=== PATIENT | female | born 1990 | race Caucasian/White ===

== ENCOUNTER 2016-12-09 07:48 | Inpatient (IN) | payer BC ==
[~2016-12-09] VITALS: Ht 157.5 cm; Wt 102.0 kg
--- NOTE | ~2016-12-09 | OR ---
PATIENT'S NAME: YAJAIRA CHÁVEZ [facility] AGE: 26 Y [address] ROOM: [id number] [place], [place] [id number] LOCATION: BS ADMIT DATE: 12/09/2016 OR/Procedure Report DISCHARGE DATE: FAMILY PHYSICIAN: Jose Miguel Mcgee MD ATTENDING PHYSICIAN: Jose Miguel Mcgee SURGEON: Jose Miguel Mcgee MD [employer]SULTANT: DATE OF PROCEDURE: 12/09/2016 PREOPERATIVE DIAGNOSES: 1. Term intrauterine at 38 weeks and 4 days gestation. 2. Spontaneous rupture of membranes with clear fluid. 3. Epidural anesthesia. 4. Pitocin augmentation. POSTOPERATIVE DIAGNOSES: 1. Term intrauterine at 38 weeks and 4 days gestation. 2. Spontaneous rupture of membranes with clear fluid. 3. Epidural anesthesia. 4. Pitocin augmentation. 5. Delivery of a viable male weighing 7 pounds, 15 ounces, scores 8 and 9 at one and five minutes respectively. 6. Very minor second-degree laceration with simple repair. DESCRIPTION OF PROCEDURE: This 26-year-old presented to Labor and Delivery earlier this morning after rupture at home around 6 a.m. She had had an uncomplicated to this point and was 38 weeks and 4 days gestation who was O positive, antibody screen negative, GBS negative, rubella immune. She had received her Tdap. She really had not been johanna for the several hours after her rupture; so, we did go ahead and start her on some Pitocin augmentation. She did have some progression and progressed to complete without difficulty. She pushed pretty much for right at an hour before delivering a male over a minor laceration described below. Baby delivered from an OA presentation with a fair amount of caput. There was no shoulder dystocia. The remainder of the delivered without difficulty. There was no nuchal cord present. Baby rotated to the maternal right after the head was delivered and the remainder of the was delivered without difficulty. Baby was placed on maternal abdomen. The cord was doubly clamped and cut by myself. Placenta then delivered intact with 3 vessel cord. EBL was 200 mL. The placenta was carefully inspected and no missing cotyledons were noted. The cervix is inspected and found to be intact without focal laceration. There were no vaginal sidewall hematomas. The perineum had a very, very minor second-degree laceration, but it did happen to go into a vessel that was pumping; so, we did go ahead and repair that with 3-0 Vicryl in the usual manner. She tolerated all that well under the epidural PATIENT'S NAME: YAJAIRA CHÁVEZ [facility] AGE: 26 Y [address] ROOM: [place] [id number] LOCATION: GO ADMIT DATE: 12/09/2016 OR/Procedure Report DISCHARGE DATE: FAMILY PHYSICIAN: Jose Miguel Mcgee MD ATTENDING PHYSICIAN: Jose Miguel Mcgee anesthesia. Both sponge counts and needle counts were correct. Both mom and are doing well at this time. JOSE MIGUEL MCGEE MD TAB/modl /[id number] d: 12/10/16 0057 t: 12/13/16 0835, OPERATIVE SUMMARY
[2016-12-09] MEDS ORDERED: PRENATAL 1+1)(P1 TAB PO (09:08)
[2016-12-09 09:42] LABS: BASOPHIL % 0.1 %; EOSINOPHIL % 0.2 %; IMMATURE GRANULOCYTE # 0.1 K/uL (0.0-0.3); IMMATURE GRANULOCYTE % 0.6 %; LYMPHOCYTE # 1.3 K/uL (0.8-4.0); LYMPHOCYTE % 15.2 %; MCH 27.5 pg (27.0-34.0); MCHC 34.2 gm/dL (32.0-36.5); MCV 80.5 fl (83.0-98.0); MONOCYTE # 0.4 K/uL (0.0-1.0); MPV 13.4 fl (9.4-12.4); NEUTROPHIL % 78.9 %; NRBC % 0 /100WBC (0-0.00); PLATELET COUNT 157 K/uL (150-450); RBC 4.72 M/uL (3.50-5.00); RDW-CV 14.7 % (11.9-14.6); WBC 8.8 K/uL (4.0-11.0)
[2016-12-10 05:31] LABS: BASOPHIL % 0.2 %; EOSINOPHIL % 0.1 %; HEMATOCRIT 31.4 % (33.0-46.0); HEMOGLOBIN 10.7 g/dL (11.0-15.0); IMMATURE GRANULOCYTE # 0.1 K/uL (0.0-0.3); IMMATURE GRANULOCYTE % 0.7 %; LYMPHOCYTE % 15.4 %; MCH 27.5 pg (27.0-34.0); MCHC 34.1 gm/dL (32.0-36.5); MCV 80.7 fl (83.0-98.0); MONOCYTE # 0.8 K/uL (0.0-1.0); MPV 13.3 fl (9.4-12.4); NEUTROPHIL # (ANC) 10.1 K/uL (1.8-7.8); NEUTROPHIL % 77.6 %; NRBC % 0 /100WBC (0-0.00); PLATELET COUNT 132 K/uL (150-450); RBC 3.89 M/uL (3.50-5.00); RDW-CV 14.7 % (11.9-14.6)
--- NOTE | 2016-12-10 16:35 | NUR ---
Met with patient at bedside today. Introduced myself and explained my role with the CM department. Patient states she has all the necessary items at home for baby including a crib, diapers, wipes, clothing, and bottles. She has a car seat. Instructed her to contact her insurance as soon as possible and get baby added to the policy. I also reviewed signs and symptoms of post depression with her. She denies any needs or concerns. Patient will discharge to home with baby on Tuesday.
--- NOTE | 2016-12-10 16:40 | NUR ---
Significant Event: Follow up: VSS, Hbg 10.7, from 13.0, sl dc'd. Not sure if Pt had flu shot on 09-09-16 or just given information. Hx of fusion of fingers in family, pt had this. Medicated with motrin @ 0911, with effectiveness.No FOB involved, plans home tomorrow. Voiding well, no clots reported.
--- NOTE | 2016-12-10 17:40 | NUR ---
addendum:, flu vaccine given 12-08-16 in office.
--- NOTE | 2016-12-11 05:33 | NUR ---
VSS, Motrin at 2109, Tylenol at 033, Fundus firm, even, sm flow
[2016-12-11] MEDS ORDERED: SURFAK240 MG PO (09:40)
[2016-12-11] MEDS ORDERED: APNO TOP (09:41)
[2016-12-11] MEDS ORDERED: MOTRIN800 MG PO (09:41)
== END 2016-12-11 13:30 | disposition disaster alternative care site (69) | DRG 775 ==
LOC: GOBS 07:48 → GOBM 07:48 → GOBS 16:22
PROVIDERS: ADMIT Family Medicine
PROC: 0KQM0ZZ Repair Perineum Muscle, Open Approach (ICD-10-PCS; principal; 2016-12-09)
PROC: 10E0XZZ Delivery of Products of Conception, External Approach (ICD-10-PCS; 2016-12-09)
DX: O42.02 Full-term premature rupture of membranes, onset of labor within 24 hours of rupture (principal); O70.1 Second degree perineal laceration during delivery; Z3A.38 38 weeks gestation of pregnancy; Z37.0 Single live birth
CPT/HCPCS: J2001; J2590; J3010; J7120